=== PATIENT | female | born 1965 | race Two or more races ===

== ENCOUNTER 2023-09-22 14:03 | Emergency (ER) | payer OTHER ==
[~2023-09-22] VITALS: Ht 154.9 cm; Wt 74.4 kg
[2023-09-22] MEDS ORDERED: ORPHENADRINE CITRATE 30 MG/ML AMPUL IM ONE (15:15)
[2023-09-22] MEDS ORDERED: KETOROLAC TROMETHAMINE 60 MG VIAL IM ONE (16:00)
== END 2023-09-22 16:04 | disposition home or self-care (01) ==
LOC: ER 14:04
DX: M25.511 Pain in right shoulder (principal)